=== PATIENT | female | born 1960 | race Caucasian/White ===

== ENCOUNTER → 2016-06-28 | Outpatient (CLI) | payer MEDICARE, MEDICAID ==
[~2016-06-28] MED LIST: AMIO400T PO; BACT800T5 PO; CARV12.52 PO; CARV25TA PO; CEPH500C PO; LEVA750T PO; LEVO250T7 PO; LEVO75TA3 PO; LOSA25TA PO; LYRI100C PO; MAGN400T2 PO; MUPI2OIN TOPICAL; PROM6.256 PO; SPIR25TA PO; WARF-20 PO; ZOFR4TAB3 SL
[2016-06-28 15:50] LABS: AUTOMATED NEUTROPHIL # 2.2 TH/MM3 (1.8-7.7); BASOPHIL % 0.4 % (0.0-2.0); EOSINOPHIL # 0.1 TH/MM3 (0-0.4); EOSINOPHIL % 3.7 % (0.0-4.0); HEMATOCRIT 35.1 % (35.0-46.0); HEMO FLAGS DIFF FINAL; LYMPH % 25.9 % (9.0-44.0); LYMPHOCYTE # 0.9 TH/MM3 (1.0-4.8); MEAN CELL VOLUME 87.8 FL (80.0-100.0); MEAN CORPUSCULAR HEMOGLOBIN 29.6 PG (27.0-34.0); MEAN CORPUSCULAR HGB CONC 33.7 % (32.0-36.0); MONO % 8.1 % (0.0-8.0); NEUT % 61.9 % (16.0-70.0); PLATELET COUNT 186 TH/MM3 (150-450); RED CELL DISTRIBUTION WIDTH 15.3 % (11.6-17.2); WHITE BLOOD COUNT 3.6 TH/MM3 (4.0-11.0)
[2016-06-28 15:58] LABS: PROTHROMBIN TIME - PATIENT 34.4 SEC (9.8-11.6)
== END ==
LOC: CLAB 15:10
PROVIDERS: ATTEND Family Medicine
DX: R50.9 Fever, unspecified (principal); I48.91 Unspecified atrial fibrillation; T14.8 Other injury of unspecified body region; X58.XXXA Exposure to other specified factors, initial encounter; L08.9 Local infection of the skin and subcutaneous tissue, unspecified
CPT/HCPCS: 36415; 83605; 85025; 85610; 86140; 87070; 87205; G0463; 99213

== ENCOUNTER 2016-11-15 16:28 | Emergency (ER) | payer MEDICARE, MEDICAID ==
[~2016-11-15] VITALS: Ht 170.2 cm; Wt 91.9 kg
[~2016-11-15 16:28] MED LIST changes: -BACT800T5 PO; -CEPH500C PO; -LEVA750T PO; -LEVO250T7 PO
[2016-11-15 16:33] VITALS: BP 121/66; PULSE 58; RESP 16; TEMP 98.5; O2SAT 99
--- NOTE | 2016-11-15 16:49 | PD ---
HPI Chief Complaint: rib pain Time Seen by Provider: 16:42 Travel History International Travel<30 days: No Contact w/Intl Traveler<30days: No Traveled to known affect area: No History of Present Illness HPI 56-year-old female here for evaluation of right-sided rib pain. The patient tripped and fall children's toy yesterday afternoon, falling onto the toy onto her right chest. She denies head injury or LOC. She now has significant right anterior/lateral rib pain that is constant, worse with movement and palpation and inspiration. She denies any other injuries. No head neck or back pain. No pain in her upper or lower extremities. She is having some difficulty breathing secondary to pain. She is on coumadin for CHF, last INR was 1.7 two days ago. 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) Blood Disorders: Yes (LUPUS ANTIBODY) Anxiety: No Depression: No Heart Rhythm Problems: Yes Cancer: No Cardiac Catheterization: Yes (LAST CATH IN 2010, DEFIBRILLATOR REPLACED JULY 2014 ) Cardiomyopathy: Yes Cardiovascular Problems: Yes (CHF AND CARIOMYOPATHY) High Cholesterol: No Chemotherapy: No Chest Pain: Yes Congestive Heart Failure: Yes COPD: No Cerebrovascular Accident: No Diabetes: No Diminished Hearing: No Endocrine: Yes Fibromyalgia: Yes Gastrointestinal Disorders: Yes GERD: No Glaucoma: No Genitourinary: No Headaches: No Hepatitis: No Hiatal Hernia: No Heparin Induced Thrombocytopen: No Hypertension: No Immune Disorder: No Implanted Vascular Access Dvce: Yes Kidney Stones: No Musculoskeletal: No Neurologic: Yes ( ) Psychiatric: Yes Reproductive: No Respiratory: Yes (CHF/ USES C PAP AT NIGHT) Immunizations Current: Yes Myocardial Infarction: No Radiation Therapy: No Renal Failure: Yes Seizures: No Sickle Cell Disease: No Sleep Apnea: Yes Thyroid Disease: Yes Ulcer: No PNEUMOCCOCAL Vaccine (Year): 2008 Menopausal: Yes : 2 Para: 2 Past Surgical History Abdominal Surgery: Yes (HYSTERECTOMY,APPY, GALLBLADDER) AICD: Yes (lead change in 2010) Appendectomy: Yes Body Medical Devices: PACEMAKER/DEFIB Cardiac Surgery: Yes (AICD X 5 IMPLANTED AND REMOVED) Cholecystectomy: Yes Coronary Artery Bypass Graft: No Ear Surgery: No Endocrine Surgery: Yes Eye Surgery: No Genitourinary Surgery: No Gynecologic Surgery: Yes Hysterectomy: Yes Joint Replacement: No Neurologic Surgery: No Oral Surgery: No Pacemaker: Yes (pacer/defib placed 4 weeks ago 05/29/14 [employer]) Thoracic Surgery: Yes (THORACTOMY) Other Surgery: Yes (FATTY TUMOR REMOVED FROM RIGHT SHOUDLER, 5 BREAST BIOPSIES) Social History Alcohol Use: No Tobacco Use: No (NEVER) Substance Use: No Allergies-Medications (Allergen,Severity, Reaction): Coded Allergies: ciprofloxacin (Unverified Allergy, Severe, HIVES, 11/15/16) erythromycin base (Unverified Allergy, Severe, RASH, 11/15/16) iodine (Unverified Allergy, Severe, HIVES, 11/15/16) latex (Unverified Allergy, Severe, RASH, 11/15/16) potassium iodide (Unverified Allergy, Severe, HIVES, 11/15/16) povidone-iodine (Unverified Allergy, Severe, HIVES, 11/15/16) sodium iodide (Unverified Allergy, Severe, HIVES, 11/15/16) sodium iodide (Unverified Allergy, Severe, HIVES, 11/15/16) adhesive (Unverified Allergy, Intermediate, RASH, 11/15/16) Reported Meds & Prescriptions Reported Meds & Active Scripts Active Levothyroxine (Levothyroxine Sodium) 75 Mcg Tab 75 Mcg PO DAILY Magnesium Oxide 400 Mg Tab 400 Mg PO BID Reported Amiodarone (Amiodarone HCl) 400 Mg Tab 400 Mg PO HS Carvedilol 12.5 Mg Tab 12.5 Mg PO DAILY Warfarin Unknown Strength Tab Unknown Dose PO DAILY@1600 Lyrica (Pregabalin) 100 Mg Cap 100 Mg PO BID Spironolactone 25 Mg Tab 25 Mg PO HS Losartan (Losartan Potassium) 25 Mg Tab 25 Mg PO HS Review of Systems Except as stated in HPI: all other systems reviewed are Neg Physical Exam Narrative GENERAL: Well-developed, well-nourished, sitting comfortably on stretcher, ambulated from triage to exam room without assistance SKIN: Focused skin assessment warm/dry. No ecchymosis. No lacerations or abrasions. HEAD: Atraumatic. Normocephalic. EYES: Pupils equal and round. No scleral icterus. No injection or drainage. ENT:Mucous membranes pink and moist. NECK: Trachea midline. No JVD. No midline cervical spine step-off or tenderness. CARDIOVASCULAR: Regular rate and rhythm. GI: Soft, nontender, nondistended. RESPIRATORY: No accessory muscle use. Clear to auscultation. Breath sounds equal bilaterally. MUSCULOSKELETAL: Right anterior/lateral/mid chest wall tenderness without step- off, without crepitus, without paradoxical chest wall movement. No midline vertebral step-off or tenderness. All joints and extremities are without deformity, without tenderness, with normal range of motion. NEUROLOGICAL: Awake and alert. No obvious cranial nerve deficits. Motor grossly within normal limits. Normal speech. PSYCHIATRIC: Appropriate mood and affect; insight and judgment normal. Data Data Last Documented VS Vital Signs Date Time Temp Pulse Resp B/P (MAP) Pulse Ox O2 Delivery O2 Flow Rate FiO2 11/15/16 16:33 98.5 58 16 121/66 (84) 99 Orders Orders Ribs, Uni (W/Exp Cxr-Min 3vw) (11/15/16 ) Complete Blood Count With Diff (11/15/16 17:16) Comprehensive Metabolic Panel (11/15/16 17:16) Prothrombin Time / Inr (Pt) (11/15/16 17:16) Act Partial Throm Time (Ptt) (11/15/16 17:16) Iv Access Insert/Monitor (11/15/16 17:16) Ecg Monitoring (11/15/16 17:16) Oximetry (11/15/16 17:16) Sodium Chloride 0.9% Flush (Ns Flush) (11/15/16 17:30) Ct Thorax/ Chest Wo Iv Contras (11/15/16 ) Resp Incentive Spirometry (11/15/16 ) Labs Laboratory Tests Test 11/15/16 17:36 White Blood Count 4.3 TH/MM3 Red Blood Count 4.06 MIL/MM3 Hemoglobin 12.0 GM/DL Hematocrit 36.0 % Mean Corpuscular Volume 88.6 FL Mean Corpuscular Hemoglobin 29.7 PG Mean Corpuscular Hemoglobin Concent 33.5 % Red Cell Distribution Width 13.6 % Platelet Count 214 TH/MM3 Mean Platelet Volume 9.4 FL Neutrophils (%) (Auto) 62.5 % Lymphocytes (%) (Auto) 25.4 % Monocytes (%) (Auto) 7.9 % Eosinophils (%) (Auto) 3.6 % Basophils (%) (Auto) 0.6 % Neutrophils # (Auto) 2.7 TH/MM3 Lymphocytes # (Auto) 1.1 TH/MM3 Monocytes # (Auto) 0.3 TH/MM3 Eosinophils # (Auto) 0.2 TH/MM3 Basophils # (Auto) 0.0 TH/MM3 CBC Comment DIFF FINAL Differential Comment Prothrombin Time 17.5 SEC Prothromb Time International Ratio 1.6 RATIO Activated Partial Thromboplast Time 32.2 SEC Blood Urea Nitrogen 14 MG/DL Creatinine 1.20 MG/DL Random Glucose 103 MG/DL Total Protein 6.4 GM/DL Albumin 3.6 GM/DL Calcium Level 8.9 MG/DL Alkaline Phosphatase 56 U/L Aspartate Amino Transf (AST/SGOT) 20 U/L Alanine Aminotransferase (ALT/SGPT) 28 U/L Total Bilirubin 1.7 MG/DL Sodium Level 140 MEQ/L Potassium Level 4.0 MEQ/L Chloride Level 106 MEQ/L Carbon Dioxide Level 27.8 MEQ/L Anion Gap 6 MEQ/L Estimat Glomerular Filtration Rate 46 ML/MIN [facility] Medical Decision Making Medical Screen Exam Complete: Yes Emergency Medical Condition: Yes Differential Diagnosis Chest wall contusion, rib fractures, hemothorax, pneumothorax Narrative Course Vital signs show heart rate 58, blood pressure 121/66, pulse ox 99% on room air , oral temp of 98.5F. Right ribs/CXR: CONCLUSION: Intact bony structures with no acute cardiopulmonary process. Because x-ray does not show any injury, CT scan of the chest was ordered to further evaluate the patient's pain. CBC is unremarkable. CMP is remarkable for creatinine 1.2, GFR 46, otherwise unremarkable. INR is 1.6. CT thorax: CONCLUSION: No acute cardiopulmonary process. Lung goodwin clear with no pneumothorax. Bony structures are intact specifically the right ribs and chest wall are normal. Patient was made aware of all findings. On reassessment she is sitting comfortably reading a book. She is in no respiratory distress. She does have right lateral/anterior chest wall tenderness without crepitus, without step-off , without paradoxical chest wall movement. Her abdomen is soft and nontender. She has a chest wall contusion. Plan is to contact our respiratory therapist to provide her with an incentive spirometer. She reports that she has plenty of pain medicine at home. She is stable for discharge home with outpatient follow-up with her primary care physician this week. She was informed on when to return to the emergency department. She verbalizes understanding and agreement with plan. Diagnosis Primary Impression: Chest wall contusion Qualified Codes: S20.211A - Contusion of right front wall of thorax, initial encounter Referrals: Primary Care Physician 3 days Additional Instructions: Follow-up with your primary care physician this week. Use incentive spirometer as directed by the respiratory therapist. Return to the emergency department for worsening symptoms or any other concerns. Disposition: 01 DISCHARGE HOME Condition: Stable Orion Vaughn MD Nov 15, 2016 16:49
--- NOTE | 2016-11-15 17:13 | RADRPT ---
EXAM DATE/TIME: 11/15/2016 16:52 [facility] COMPARISON: No previous studies available for comparison. INDICATIONS : Right flank and posterior, superior rib pain post fall. MEDICAL HISTORY : Congestive heart failure. Hypothyroidism. Lupus. Thyroid disease. Cardio myopathy, Mitral valve prolapse. Afib. Sleep apnea. Renal disease and failure. UTI. Fibromyalgia SURGICAL HISTORY : Pacemaker. Hysterectomy. Appendectomy. Cardiac cath. Thoractomy, Cholecyste ctomy. Breast biopsy x5. Blood transfusions. Fatty tumor removed from right shoulder ENCOUNTER: Initial ACUITY: 1 day PAIN SCORE: 9/10 LOCATION: Right chest FINDINGS: Multiple views of the right ribs were performed. There is no evidence of displaced fracture. No андрей tructive lesions or areas of periosteal thickening are seen. Expiratory view of the chest is negativ e for pneumothorax. The mediastinal structures are midline. Bipolar pacemaker AICD device overlies the right hemithorax with compensated left ventricular cardiomegaly. CONCLUSION: Intact bony structures with no acute cardiopulmonary process. Anthony Way MD on November 15, 2016 at 17:08 Board Certified Radiologist. This report was verified electronically.
[2016-11-15] MEDS ORDERED: SODIUM CHLORIDE 0.9% FLUSH 10 ML FLUSH IV FLUSH PRN (17:30)
[2016-11-15 17:58] LABS: AUTOMATED NEUTROPHIL # 2.7 TH/MM3 (1.8-7.7); BASOPHIL % 0.6 % (0.0-2.0); EOSINOPHIL # 0.2 TH/MM3 (0-0.4); EOSINOPHIL % 3.6 % (0.0-4.0); HEMO FLAGS DIFF FINAL; LYMPH % 25.4 % (9.0-44.0); LYMPHOCYTE # 1.1 TH/MM3 (1.0-4.8); MEAN CELL VOLUME 88.6 FL (80.0-100.0); MEAN CORPUSCULAR HEMOGLOBIN 29.7 PG (27.0-34.0); MEAN CORPUSCULAR HGB CONC 33.5 % (32.0-36.0); MONO % 7.9 % (0.0-8.0); NEUT % 62.5 % (16.0-70.0); PLATELET COUNT 214 TH/MM3 (150-450); RED BLOOD COUNT 4.06 MIL/MM3 (4.00-5.30); RED CELL DISTRIBUTION WIDTH 13.6 % (11.6-17.2); WHITE BLOOD COUNT 4.3 TH/MM3 (4.0-11.0)
[2016-11-15 17:59] LABS: CHLORIDE 106 MEQ/L (98-107); SODIUM (NA) 140 MEQ/L (136-145)
[2016-11-15 18:03] LABS: ANION GAP 6 MEQ/L (5-15); BICARBONATE 27.8 MEQ/L (21.0-32.0); BLOOD UREA NITROGEN 14 MG/DL (7-18)
[2016-11-15 18:04] LABS: APTT (PATIENT) 32.2 SEC (24.3-30.1); INTERNATIONAL NORMALIZED RATIO 1.6 RATIO; PROTHROMBIN TIME - PATIENT 17.5 SEC (9.8-11.6)
[2016-11-15 18:06] LABS: ALT (GPT) 28 U/L (10-53); AST (GOT) 20 U/L (15-37); GLOMERULAR FILTRATION RATE 46 ML/MIN (>89)
[2016-11-15 18:07] LABS: TOTAL BILIRUBIN ADULT 1.7 MG/DL (0.2-1.0)
[2016-11-15 18:08] LABS: ALKALINE PHOSPHATASE 56 U/L (45-117)
--- NOTE | 2016-11-15 18:23 | RADRPT ---
EXAM DATE/TIME: 11/15/2016 17:56 [facility] COMPARISON: CHEST SINGLE AP, January 12, 2016, 19:11. CT ABDOMEN & PELVIS W/O CONTRAST, January 12, 2016, 23:2 2. INDICATIONS : Trauma. Tripped and fell yesterday. Right rib pain. RADIATION DOSE: 20.46 CTDIvol (mGy) ; Patient positioning MEDICAL HISTORY : Renal failure, chronic. Congestive heart failure. SURGICAL HISTORY : Pacemaker. Appendectomy.Cholecystectomy. Hysterectomy. ENCOUNTER: Initial ACUITY: 1 day PAIN SCALE: 7/10 LOCATION: Right chest TECHNIQUE: Volumetric scanning of the chest was performed. Using automated exposure control and adjustment of t he mA and/or kV according to patient size, radiation dose was kept as low as reasonably achievable to obtain optimal diagnostic quality images. DICOM format image data is available electronically for r eview and comparison. Follow-up recommendations for detected pulmonary nodules are based at a minimum on nodule size and pa tient risk factors according to Fleischner Society Guidelines. FINDINGS: Soft tissues are normal. Bony structures are intact specifically the right ribs are intact and well v isualized. Pacemaker AICD device overlies the right hemithorax with left ventricular cardiomegaly whi ch appears compensated. Lung goodwin are clear with no acute cardiopulmonary process or pneumothorax. There is chronic pleural thickening laterally in the left lung base CONCLUSION: No acute cardiopulmonary process. Lung goodwin clear with no pneumothorax. Bony structures are intact specifically the right ribs and chest wall are normal. Anthony Way MD on November 15, 2016 at 18:15 Board Certified Radiologist. This report was verified electronically.
== END 2016-11-15 18:54 | disposition home or self-care (01) ==
LOC: PHED 16:28
DX: S20.211A Contusion of right front wall of thorax, initial encounter (principal); W01.0XXA Fall on same level from slipping, tripping and stumbling without subsequent striking against object, initial encounter; E03.9 Hypothyroidism, unspecified; I34.1 Nonrheumatic mitral (valve) prolapse; I42.9 Cardiomyopathy, unspecified; I48.91 Unspecified atrial fibrillation; I50.9 Heart failure, unspecified; M32.9 Systemic lupus erythematosus, unspecified; M79.7 Fibromyalgia; Z79.01 Long term (current) use of anticoagulants; Z95.0 Presence of cardiac pacemaker
CPT/HCPCS: 71101; 71250; 80053; 85025; 85610; 85730; 94150

== ENCOUNTER 2017-01-27 16:23 | Emergency (ER) | payer MEDICARE, MEDICAID ==
[~2017-01-27] VITALS: Ht 170.2 cm; Wt 89.0 kg
[~2017-01-27 16:23] MED LIST changes: -CARV25TA PO; -MUPI2OIN TOPICAL; -PROM6.256 PO; -ZOFR4TAB3 SL
[2017-01-27 16:36] VITALS: BP 136/68; PULSE 57; RESP 16; TEMP 98.5; O2SAT 98
[2017-01-27] MEDS ORDERED: WARF4TAB51 PO (17:45)
[2017-01-27] MEDS ORDERED: WARF-58 PO (17:45)
[2017-01-27] MEDS ORDERED: diphenhydrAMINE HCL 25 MG CAP PO ONE (18:00)
--- NOTE | 2017-01-27 18:12 | PD ---
HPI Chief Complaint: Bite or Sting Time Seen by Provider: 17:50 Travel History International Travel<30 days: No Contact w/Intl Traveler<30days: No Traveled to known affect area: No History of Present Illness HPI 56-year-old female here with right hand pain after a "puss" caterpillar fell onto her left hand prior to arrival. She reports the area is burning and itching. She has redness to the hand. No aggravating or alleviating factors. Symptoms. 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) Blood Disorders: Yes (LUPUS ANTIBODY) Anxiety: No Depression: No Heart Rhythm Problems: Yes Cancer: No Cardiac Catheterization: Yes (LAST CATH IN 2010, DEFIBRILLATOR REPLACED JULY 2014 ) Cardiomyopathy: Yes Cardiovascular Problems: Yes High Cholesterol: No Chemotherapy: No Chest Pain: Yes Congestive Heart Failure: Yes COPD: No Cerebrovascular Accident: No Diabetes: No Diminished Hearing: No Endocrine: Yes Fibromyalgia: Yes Gastrointestinal Disorders: Yes GERD: No Glaucoma: No Genitourinary: No Headaches: No Hepatitis: No Hiatal Hernia: No Heparin Induced Thrombocytopen: No Hypertension: No Immune Disorder: No Implanted Vascular Access Dvce: Yes Kidney Stones: No Musculoskeletal: No Neurologic: Yes ( ) Psychiatric: Yes Reproductive: No Respiratory: Yes (CHF/ USES C PAP AT NIGHT) Immunizations Current: Yes Myocardial Infarction: No Radiation Therapy: No Renal Failure: Yes Seizures: No Sickle Cell Disease: No Sleep Apnea: Yes Thyroid Disease: Yes Ulcer: No PNEUMOCCOCAL Vaccine (Year): 2008 ?: Not Menopausal: Yes : 2 Para: 2 Past Surgical History Abdominal Surgery: Yes (HYSTERECTOMY,APPY, GALLBLADDER) AICD: Yes (lead change in 2010) Appendectomy: Yes Body Medical Devices: PACEMAKER/DEFIB Cardiac Surgery: Yes (AICD X 5 IMPLANTED AND REMOVED) Cholecystectomy: Yes Coronary Artery Bypass Graft: No Ear Surgery: No Endocrine Surgery: Yes Eye Surgery: No Genitourinary Surgery: No Gynecologic Surgery: Yes Hysterectomy: Yes Insulin Pump: No Joint Replacement: No Neurologic Surgery: No Oral Surgery: No Pacemaker: Yes (pacer/defib placed 4 weeks ago 05/29/14 [employer]) Thoracic Surgery: Yes (THORACTOMY) Other Surgery: Yes (FATTY TUMOR REMOVED FROM RIGHT SHOUDLER, 5 BREAST BIOPSIES) Social History Alcohol Use: No Tobacco Use: No (NEVER) Substance Use: No Allergies-Medications (Allergen,Severity, Reaction): Coded Allergies: ciprofloxacin (Unverified Allergy, Severe, HIVES, 01/27/17) erythromycin base (Unverified Allergy, Severe, RASH, 01/27/17) iodine (Unverified Allergy, Severe, HIVES, 01/27/17) latex (Unverified Allergy, Severe, RASH, 01/27/17) potassium iodide (Unverified Allergy, Severe, HIVES, 01/27/17) povidone-iodine (Unverified Allergy, Severe, HIVES, 01/27/17) sodium iodide (Unverified Allergy, Severe, HIVES, 01/27/17) sodium iodide (Unverified Allergy, Severe, HIVES, 01/27/17) adhesive (Unverified Allergy, Intermediate, RASH, 01/27/17) Reported Meds & Prescriptions Reported Meds & Active Scripts Active Levothyroxine (Levothyroxine Sodium) 75 Mcg Tab 75 Mcg PO DAILY Magnesium Oxide 400 Mg Tab 400 Mg PO BID Reported Warfarin 3 Mg Tab 3 Mg PO LOCKETT,,TH,SA Warfarin 2 Mg Tab 2 Mg PO MO,WE,FR Amiodarone (Amiodarone HCl) 400 Mg Tab 400 Mg PO HS Carvedilol 12.5 Mg Tab 12.5 Mg PO BID Lyrica (Pregabalin) 100 Mg Cap 100 Mg PO BID Spironolactone 25 Mg Tab 25 Mg PO HS Losartan (Losartan Potassium) 25 Mg Tab 25 Mg PO HS Review of Systems Except as stated in HPI: all other systems reviewed are Neg Physical Exam Narrative GENERAL: Alert female in no distress. SKIN: Warm and dry. Mild erythema noted to the right hand dorsal aspect. NECK: Supple, trachea midline. No JVD or lymphadenopathy. CARDIOVASCULAR: Regular rate and rhythm without murmurs, gallops, or rubs. RESPIRATORY: Breath sounds equal bilaterally. No accessory muscle use. MUSCULOSKELETAL: No cyanosis. Right hand: Mild erythema to the right hand dorsal aspect. No areas of induration. No bony tenderness. Patient is able to fully flex and extend all fingers. No swelling. Data Data Last Documented VS Vital Signs Date Time Temp Pulse Resp B/P (MAP) Pulse Ox O2 Delivery O2 Flow Rate FiO2 01/27/17 16:36 98.5 57 16 136/68 (90) 98 Orders Orders Ed Discharge Order (01/27/17 18:00) Diphenhydramine (Benadryl) (01/27/17 18:00) MDM Medical Decision Making Medical Screen Exam Complete: Yes Emergency Medical Condition: Yes Differential Diagnosis Insect sting, abscess, cellulitis Narrative Course 56-year-old female here with right hand pain after a "puss" caterpillar L onto her left hand prior to arrival. She reports the area is burning and itching. On exam she has mild erythema to the hand. Patient was instructed to use OTC Benadryl, calamine lotion, antihistamine lotion for discomfort. Take Tylenol or ibuprofen as needed for pain. Follow-up with primary doctor. Diagnosis Primary Impression: Insect bite Qualified Codes: W57.XXXA - Bitten or stung by nonvenomous insect and other nonvenomous arthropods, initial encounter Referrals: Primary Care Physician Additional Instructions: Take [id number] Benadryl as needed for itching. Use calamine lotion as needed. Follow-up with her primary doctor. Disposition: 01 DISCHARGE HOME Condition: Stable RomeliaAdrianna JIMENEZ Jan 27, 2017 18:12
== END 2017-01-27 18:37 | disposition home or self-care (01) ==
LOC: PHED 16:23 → PHEFT 18:37
DX: T63.431A Toxic effect of venom of caterpillars, accidental (unintentional), initial encounter (principal); M79.641 Pain in right hand; I48.91 Unspecified atrial fibrillation; I50.9 Heart failure, unspecified; Z79.01 Long term (current) use of anticoagulants
CPT/HCPCS: 99283

== ENCOUNTER → 2017-08-08 | Outpatient (CLI) | payer MEDICARE, MEDICAID ==
[~2017-08-08] MED LIST changes: +AUGM875T3 PO; +BACT800T5 PO; +NITR100C4 PO; +PNEU0.5I2 IM; +PNEU0.5I2 SQ; +TETA1INJ5 IM; -WARF-20 PO; +WARF-58 PO; +WARF4TAB51 PO
== END ==
LOC: PLAB 08:41
PROVIDERS: ATTEND Family Medicine
DX: N39.0 Urinary tract infection, site not specified (principal); B96.20 Unspecified Escherichia coli [E. coli] as the cause of diseases classified elsewhere
CPT/HCPCS: 87077; 87086; 87186